=== PATIENT | female | born 1970 | race Caucasian/White ===

== ENCOUNTER 2022-01-14 10:43 | Outpatient (CLI) | payer BC ==
[2022-01-14 13:01] LABS: #Basophils 0.1 10x3/uL (0.0-0.2); #Monocytes 0.5 10x3/uL (0.0-1.1); %Basophils 0.6 % (0.0-2.0); %Eosinophils 0.2 % (0.0-6.0); %Lymphocytes 20.7 % (18.0-47.0); %Monocytes 5.5 % (0.0-10.0); %Neutrophils 72.9 % (40.0-75.0); Hemoglobin 13.8 g/dL (12.0-15.5); Mean Corpuscular HGB CONC 34.7 g/dL (32.0-36.0); Mean Corpuscular Hemoglobin 31.9 pg (27.0-33.0); Mean Corpuscular Volume 91.9 fl (81.6-98.3); Platelet Count 234 10x3/uL (150-450); RBC Distribution Width 11.9 % (11.5-14.5); Red Blood Cell (RBC) Count 4.33 10x6/uL (3.90-5.03); White Blood Cell (WBC) Count 8.2 10x3/uL (3.5-10.5)
[2022-01-14 13:18] LABS: Anion Gap 13 mmol/L (10-20); BUN (Urea Nitrogen) 21 mg/dL (7.0-18.7); Calc. Creatinine Clearance 0 mL/min (70-130); Calcium 9.6 mg/dL (7.8-10.44); Carbon Dioxide 28 mmol/L (22-29); Chloride 104 mmol/L (98-107); Estimated GFR 79; Glucose 76 mg/dL (70-105); Potassium 4.3 mmol/L (3.5-5.1); Sodium 141 mmol/L (136-145)
== END 2022-01-14 10:44 | disposition home or self-care (01) ==
LOC: LABBT 10:43
PROVIDERS: ATTEND Surgery
DX: Z01.812 Encounter for preprocedural laboratory examination (principal); K62.0 Anal polyp
CPT/HCPCS: 80048; 85025

== ENCOUNTER 2022-01-17 10:59 | Day surgery (SDC) | payer BC ==
[2022-01-16 10:56] VITALS: BMI 23.6
[2022-01-17] MEDS ORDERED: Acetaminophen 500 MG TAB ONE (12:05)
== END 2022-01-17 15:23 | disposition home or self-care (01) ==
LOC: SDC 10:59
PROVIDERS: ATTEND Surgery
DX: K62.0 Anal polyp (principal); E03.9 Hypothyroidism, unspecified; Z53.9 Procedure and treatment not carried out, unspecified reason; Z79.890 Hormone replacement therapy